=== PATIENT | male | born 1955 | race Caucasian/White ===

== ENCOUNTER → 2018-01-28 | Outpatient (CLI) | payer OTHER | LOC: M.MRI 08:09 | DX: M47.896 Other spondylosis, lumbar region (principal); M71.38 Other bursal cyst, other site; R60.9 Edema, unspecified; M54.16 Radiculopathy, lumbar region ==

== ENCOUNTER → 2018-05-04 | Outpatient (CLI) | payer OTHER ==
[~2018-05-04] MED LIST: ALEVE220 MG PO; ATORVASTATIN CA40 MG PO; FOSINOPRIL SODI40 M1 PO; HYDROCHLOROTH12.5 M1 PO; IBUPROFEN 400400 M2 PO; MOBIC15 MG PO; NORVASC5 MG PO
--- NOTE | ~2018-05-04 | PAINCON ---
[address] [address] PAIN MANAGEMENT CONSULTATION Name: REJI PRICE [facility] [id number] Admission: 05/04/18 Attend Phys: Vania Oscar MD Discharge: Date of : 53 Report #: [id number] THIS REPORT FOR: //name// CC: Mike Oscar DATE OF SERVICE: 05/04/2018 CHIEF COMPLAINT: Right leg radicular pain. HISTORY: The patient is a 62-year-old gentleman, who has been referred to the pain clinic for evaluation. The patient has complained of pain that began in about 12/2017. He has been having pain that is radiating down into his hip and shooting down to his right leg. He notes that the pain is worse over time. It continues to hurt "all day." Pain is better when he is lying down, somewhat helped with use of Advil, he describes it as continuous, burning, and shooting, he rates it as a 7/10 at this juncture. He has had an MRI, which shows right paracentral disk extrusion that abuts the thecal sac at the L5-S1 area and is hitting the S1 nerve root. He has a synovial cyst at that level. He has seen an orthopedic surgeon. He has undergone physical therapy about 4 weeks ago. He feels that the physical therapy worsened his condition. He is experiencing right leg weakness. He has tried Neurontin, is not sure that there was significant benefit from that. He notes that activities such as walking, standing, lifting, and bending are problematic. He has had some problem with his right knee, which has been drained on 2 occasions. He has some wffi-bm-ptlg deformity. PAST MEDICAL HISTORY: Hypertension. PAST SURGICAL HISTORY: Right knee surgery in 1984 and 2005, carpal tunnel surgery, left, in 2015. CURRENT MEDICATIONS: Lipitor 40 mg, amlodipine 5 mg, hydrochlorothiazide 12.5 mg, and fosinopril 40 mg. ALLERGIES: No known drug allergies. 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 REVIEW OF SYSTEMS: Generally, he is in good health. He wears glasses for reading. He has joint pain, joint stiffness, back pain, difficulty walking, numbness and tingling radiating down into the right leg. PAIN CLINIC ASSESSMENT AND PQRS: 1. Pain intensity is 7/10. 2. Osteoarthritis. The patient has some arthritic changes [place] [address] PAIN MANAGEMENT CONSULTATION Name: REJI PRICE Room: [facility]#: [id number] Admission: 05/04/18 Attend Phys: Vania Oscar MD Discharge: Date of : 53 Report #: [id number] of his back. 3. The patient is not being treated for rheumatoid arthritis. The patient has iktp-sa-bank pain involving the right knee. 4. Fall risk. The patient has not fallen in the last 3 months. 5. Blood thinner. The patient is not on a blood thinning medication. 6. Hypertension. The patient is being treated for hypertension. 7. Opioids greater than 6 weeks. The patient is not on an opioid regimen. 8. Risk assessment tool, low for opioid use. 9. Functional assessment tool. 10. Recreational drug use. The patient denies use of recreational drugs. 11. Tobacco: The patient denies use of tobacco. 12. Alcohol: The patient drinks beer daily. PHYSICAL EXAMINATION: GENERAL: The patient is a well-developed, well-nourished white male. He appears his stated age. He is alert and oriented x 3. His affect is appropriate. Speech is fluent. Height is 5 feet 11 inches, weight is 186 pounds, and BMI is 26. VITAL SIGNS: Blood pressure is 130/101, heart rate is 71, respiratory rate is 16, room air saturation is about 95%, and temperature is 97.8. HEENT: Normocephalic, atraumatic. Extraocular eye muscles intact. Sclerae nonicteric. Mucous membranes are moist. NECK: Without adenopathy or JVD. LUNGS: Clear to auscultation. MUSCULOSKELETAL: The patient is without significant scoliosis, kyphosis, or lordosis. He has pain and discomfort in the lower portion of his back. Forward bending to 90 degrees cause some increased pain in the low back area. Lumbar extension is not very problematic. Left and right lateral rotation both increased pain and discomfort. Lumbar extension caused some increased pain in low back area. The patient is having pain along the left lateral L5 dermatomal distribution on his right side. Upper extremity muscle strength is judged to be 5/5 for the major muscle groups. Deep tendon reflexes are trace bilaterally. Lower extremity muscle strength is judged to be 5/5 for the major muscle groups in the lower extremity. The patient notes some increased pain and discomfort with his left leg hanging in a dependent position. LABORATORY DATA: MRI of the lumbar spine dated 01/28/2018: 1. Axial image at L3-L4 straight, a generalized disk bulge, which is slightly more eccentric towards the left. This results in minimal left-sided neural foraminal narrowing. Moderate posterior facet degenerative changes present. No central spinal stenosis. 2. L4-L5: There is a generalized bulge, which is eccentric towards the right. Moderate hypertrophic posterior facet degenerative changes are present with fluid within both posterior facet joints. There is an anteromedially protecting right posterior facet joint synovial cyst measuring 7.7 mm x 8 mm in AP x transverse dimension. This abuts the right [place] [address] PAIN MANAGEMENT CONSULTATION Name: REJI PRICE Room: [facility] Aguirre#: [id number] Admission: 05/04/18 Attend Phys: Vania Oscar MD Discharge: Date of : 53 Report #: [id number] thecal sac and the descending right L5 nerve root. There is severe right-sided neural foraminal narrowing. Moderate left-sided neural foraminal narrowing. 3. At L5-S1, there is a right paracentral disk extrusion, which abuts the thecal sac and the descending right S1 nerve root sleeve. No significant central spinal stenosis. There is minimal bilateral neural foraminal narrowing. There is oajkdhej-ys-wvufut bilateral posterior facet joint degenerative changes. There is a small 8 mm fluid collection immediately posterior to the right posterior facet joint, which may represent a dorsal synovial cyst. IMPRESSION: 1. Lumbar radiculopathy involving the low back area with pain radiating down into the L5-S1 dermatomal distribution of his right leg in the L4-L5 distribution to the foot. 2. Hypertension. RECOMMENDATIONS: We have discussed treatment options with the patient. We will consider an epidural steroid injection. Possible complications of the procedure, which could include but are not limited to infection, worsening of pain, nerve damage, and bleeding were discussed. The patient will return to the pain clinic at which time he will then undergo an epidural steroid injection in the L4-L5 dermatomal distribution. We would like to thank you for letting us to participate in his care. We hope he continues to improve. By: [id number]. Thaddeus Oscar MD /[facility]
== END ==
LOC: M.PC 10:40
DX: M54.16 Radiculopathy, lumbar region (principal); I10 Essential (primary) hypertension

== ENCOUNTER → 2018-05-11 | Outpatient (CLI) | payer OTHER ==
--- NOTE | ~2018-05-11 | PAINCON ---
[address] [address] PAIN MANAGEMENT CONSULTATION Name: REJI PRICE [facility]: [facility] LemusRyan#: [id number] Admission: 05/11/18 Attend Phys: Vania Oscar MD Discharge: Date of : 53 Report #: [id number] THIS REPORT FOR: //name// CC: Mike Oscar DATE OF SERVICE: 05/11/2018 CHIEF COMPLAINT: Right leg pain. HISTORY: The patient is a 62-year-old gentleman who has been referred to the pain clinic. He suffers from pain and discomfort involving his right leg. He is experiencing pain that is shooting down into the right leg. Notes that the pain has worsened with time. As the day progresses, his pain becomes more problematic. He has tried nonsteroidal anti-inflammatory medications. His MRI shows a right paracentral disk extrusion that abuts the thecal sac at the L5-S1 area. He has returned today for treatment. He also has a synovial cyst at the level of L5-S1. He has undergone physical therapy. He has seen orthopedic surgeon. At this juncture, he would like to undergo an epidural steroid injection to help control his pain. ALLERGIES: No known drug allergies. MEDICATIONS: Lipitor 40 mg, amlodipine 5 mg, hydrochlorothiazide 12.5 mg, fosinopril 40 mg. PAIN CLINIC ASSESSMENT/PQRS: 1. Osteoarthritis. The patient has some arthritic changes in the lower portion of his back. 2. He is not being treated for rheumatoid arthritis. Has bclu-wr-vzkz pain in his right knee. 3. Pain intensity 6.5/10 when he is moving. 4. Fall risk. The patient has not fallen in the last 3 months. 5. Blood thinner. The patient is not on a blood thinning medication. 6. Hypertension. The patient is being treated for hypertension. 7. Opioid greater than 6 weeks. The patient is not receiving opioid medications on a regular basis. 8. Functional assessment tool, low for opioids. 9. Recreational drug use: The patient denies. 10. Tobacco: The patient denies use of tobacco. 11. Alcohol: The patient drinks a beer. PHYSICAL EXAMINATION: GENERAL: The patient is a well-developed, well-nourished white male. Appears his stated age. He is alert and oriented x 3. His affect is appropriate[place] [address] PAIN MANAGEMENT CONSULTATION Name: REJI PRICE Room: [facility]#: [id number] Admission: 05/11/18 Attend Phys: Vania Oscar MD Discharge: Date of : 53 Report #: [id number] HEENT: Normocephalic, atraumatic. Extraocular eye muscles intact. Sclerae nonicteric. Mucous membranes are moist. NECK: Without adenopathy or JVD. LUNGS: Clear to auscultation. MUSCULOSKELETAL: Without significant scoliosis, kyphosis or lordosis. The patient has some pain and discomfort in the lower portion of his back. His pain is radiating down into his right hip and into the right leg. Notes increased pain with walking. Muscle strength to the lower extremities is judged to be 5/5 for the left leg and 5-/5 for the right leg. IMPRESSION: 1. Lumbar radiculopathy involving the low back area with pain radiating down the L5-S1 dermatomal distribution of his right and with pain in the right L4-L5 dermatomal distribution involving his foot. 2. Hypertension. RECOMMENDATIONS: We discussed treatment options with the patient. Risks and benefits of an epidural steroid injection were again reviewed. They include but are not limited to infection, worsening of pain, no improvement in pain and the patient elects to proceed. PROCEDURE NOTE: The patient was placed in the prone position. His back was sterilely prepped with a Betadine solution. A pillow was placed under his abdomen to bolster and improve positioning. Fluoroscopy using anterior, posterior as well as lateral viewing were implemented. The patient's back had been sterilely prepped with a Betadine solution. This area was infiltrated at the L4-L5 interspace with 0.25% bupivacaine using a 25-gauge needle. A 17-gauge Tuohy with loss of resistance technique at the L4-L5 interspace midline was located. After appropriate placement, a total of 80 mg Depo-Medrol, 40 mg triamcinolone and 2 mL of 0.25% bupivacaine was injected using a right paramedian approach. The patient tolerated the procedure well. Total of 9 seconds fluoroscopy time was used. The patient's pain decreased to 1-2 at the time of his discharge. He will follow up in the future. A script for meloxicam 15 mg 1 p.o. daily was prescribed. The patient will call us if he has any concerns. We would like to thank you for letting us participate in his care. We hope he continues to improve. By: [id number]. Thaddeus Oscar MD /[facility]
== END | disposition home or self-care (01) ==
LOC: M.PC 04:56
DX: M54.16 Radiculopathy, lumbar region (principal); G89.29 Other chronic pain; I10 Essential (primary) hypertension; Z79.899 Other long term (current) drug therapy; Z98.890 Other specified postprocedural states

== ENCOUNTER → 2018-06-15 | Outpatient (CLI) | payer OTHER ==
[~2018-06-15] MED LIST changes: +MEDROLDOSEPACK PO
--- NOTE | ~2018-06-15 | PAINCON ---
[address] [address] PAIN MANAGEMENT CONSULTATION Name: REJI PRICE Naresh Room: [facility] LemusRyan#: [id number] Admission: 06/15/18 Attend Phys: Vania Oscar MD Discharge: Date of : 53 Report #: [id number] THIS REPORT FOR: //name// CC: Mike Aguilera DATE OF SERVICE: 06/15/2018 CHIEF COMPLAINT: Right leg radiculopathy. HISTORY OF PRESENT ILLNESS: The patient is a 62-year-old gentleman who has been seen in the Pain Clinic. He has undergone epidural steroid injection. Notes that his pain is improved significantly. He rates it as a 1/10. Feels is about 90% improved overall. Does still has some pain that radiates down the right lateral side, but overall things are going reasonably well. At this juncture, he is not sure whether or not he should undergo another epidural injection or save it for different time. He was given Mobic. He has not taken this yet. Has not used Advil. He is able to bend, twist and engage in activity with much less discomfort. Notes that lifting, bending, walking, standing and other activities can cause increased pain. Overall, he feels medications heat and cold have been helpful. He would like to consider his options. ALLERGIES: No known drug allergies. CURRENT MEDICATIONS: Lipitor 40 mg, amlodipine 5 mg, hydrochlorothiazide 12.5 mg, and Fosinopril 40 mg. PAIN CLINIC ASSESSMENT/PQRS: 1. The patient is not being treated for rheumatoid arthritis. Has some osteoarthritic changes in the lower portion of his back. 2. The patient has lcrn-vr-musb involvement in his right knee. 3. Fall history: The patient has not fallen in the last 3 months. 4. Blood thinner. The patient is not on a blood thinning medication. 5. Hypertension. The patient is being treated for hypertension. 6. Opioids greater than 6 weeks. The patient is not on opioid regimen. 7. Risk assessment tool, low for opioid use. 8. Functional assessment tool. 9. Recreational drug use. The patient denies use of recreational drugs. 10. Tobacco: The patient denies use of tobacco. 11. Alcohol: The patient occasionally drinks beer daily. PHYSICAL EXAMINATION: GENERAL: The patient is a well-developed, well-nourished white male. Appears his stated age. He is alert and oriented x 3. His affect is appropriate. [place] [address] PAIN MANAGEMENT CONSULTATION Name: REJI PRICE Naresh Room: [facility]#: [id number] Admission: 06/15/18 Attend Phys: Vania Oscar MD Discharge: Date of : 53 Report #: [id number] HEENT: Normocephalic and atraumatic. Extraocular eye muscles intact. Sclerae nonicteric. Mucous membranes are moist. NECK: Without adenopathy or JVD. LUNGS: Clear to auscultation. MUSCULOSKELETAL: Without significant scoliosis, kyphosis or lordosis. The patient has some discomfort in the lower portion of his back. Forward bending to 90 degrees has decreased in discomfort. He is able to do this easier. Has less pain in the L4-L5 dermatomal distribution. Muscle strength in the lower back appears to be 5/5 for the major muscle groups in the lower extremity. IMPRESSION: 1. Lumbar radiculopathy involving the low back area with pain radiating down the L5-S1 dermatomal distribution as well as the L4-L5 dermatomal distribution. 2. Hypertension. RECOMMENDATIONS: We discussed treatment options with the patient. The patient underwent an epidural steroid injection in the L4-L5 dermatomal distribution at the last visit. Overall, he feels that things are about 90% better. He is not having any significant problems. Still has some pain that radiates down the lateral portion of his leg on the right thigh. We will try a conservative approach. The patient has been given a Medrol Dosepak to take in the interim. We will have the patient try Meloxicam 15 mg 1 p.o. b.i.d. The patient has also been given a Medrol Dosepak to take as directed. He will call us if he has any concerns. Should his pain become more problematic, he will return to the Pain Clinic at which time he will then undergo another epidural steroid injection. We would like to thank you for letting us participate in his care. Overall, things are going well and he feels satisfied with the results. By: [id number]. Thaddeus Oscar MD /[facility]
== END ==
LOC: M.PC 04:27
DX: M54.16 Radiculopathy, lumbar region (principal); I10 Essential (primary) hypertension

== ENCOUNTER → 2018-08-10 | Outpatient (CLI) | payer OTHER ==
--- NOTE | ~2018-08-10 | PAINCON ---
[address] [address] PAIN MANAGEMENT CONSULTATION Name: REJI PRICE Room: [facility] LemusRyan#: [id number] Admission: 08/10/18 Attend Phys: Vania Oscar MD Discharge: Date of : 53 Report #: [id number] THIS REPORT FOR: //name// CC: Mike Aguilera DATE OF SERVICE: 08/10/2018 CHIEF COMPLAINT: Here for low back pain. HISTORY: The patient is a 62-year-old gentleman who has been seen in the pain clinic because of lumbar radiculopathy. He has undergone epidural steroid injection in the past and gleaned benefits from this. He is having some pain in his low back area. He is having pain that is radiating down into the right lateral portion of his leg and down into his calf. He feels that his pain was 100% improved after the first injection. It has become more problematic at this juncture now. He rates it as 6/10. He feels it is about 30% improved. He feels that the meloxicam is helpful. He is desiring an epidural steroid inject to help quell the pain and discomfort, which he is beginning to notice returning. ALLERGIES: No known drug allergies. CURRENT MEDICATIONS: Lipitor 40 mg, amlodipine 5 mg, hydrochlorothiazide 12.5 mg, and fosinopril 40 mg. PAIN CLINIC ASSESSMENT ASSESSMENT/PQRS. 1. The patient is not being treated for rheumatoid arthritis. He does have some osteoarthritic changes in his lower back. 2. The patient has some iryi-ms-jwyi involving his right knee. 3. Fall history: The patient has not fallen in the last 3 months. 4. Blood thinner. The patient is not on a blood thinning medication. 5. Hypertension. The patient is being treated for hypertension. 6. Opioids greater than 6 weeks. 7. The patient is not being treated long-term with opioid medications. 8. Functional assessment tool: Low for opioid use. 9. Recreational drug use: The patient denies use of recreational drugs. 10. Tobacco: The patient denies use of tobacco. 11. Alcohol: The patient occasionally drinks alcoholic beverage, drinks beer. PHYSICAL EXAMINATION: GENERAL: The patient is a well-developed, well-nourished white male. Appears his stated age. He is alert and oriented x 3. Affect is appropriate. Speech is fluent. HEENT: Normocephalic, atraumatic. Extraocular eye muscles [place] [address] PAIN MANAGEMENT CONSULTATION Name: DEEREJI Naresh Room: [facility]#: [id number] Admission: 08/10/18 Attend Phys: Vania Oscar MD Discharge: Date of : 53 Report #: [id number] nonicteric. Mucous membranes moist. NECK: Without adenopathy or JVD. HEART: Regular rate. LUNGS: Clear to auscultation. MUSCULOSKELETAL: Without significant scoliosis, kyphosis or lordosis. The patient has some discomfort in the lower portion of his back. Forward bending to 90 degrees caused some increased discomfort. The patient has pain that is radiating down the L4-L5 dermatomal distribution, particularly on the right side. Muscle extremity strength is judged to be 5/5 for the major muscle groups in the lower extremity. IMPRESSION: 1. Lumbar radiculopathy involving the L4-L5 dermatomal distribution on the right. 2. Hypertension. RECOMMENDATIONS: We discussed treatment options with the patient. Risks and benefits of an epidural steroid injection were discussed. Possible complications of the procedure, which could include but are not limited to infection, worsening of pain, no improvement in pain, trauma were reviewed. The patient elects to proceed. PROCEDURE NOTE: The patient was taken to the procedure area. He was then assisted in getting on examination table. His back was sterilely prepped with a Betadine solution. A 17-gauge Tuohy with loss of resistance technique was used to gain access at the right L4-L5 dermatomal area. This area was infiltrated with 0.25% bupivacaine. A 17-gauge Tuohy with loss of resistance technique using the right paramedian approach was undertaken. A total of 80 mg Depo-Medrol, 40 mg triamcinolone and 2 mL of 0.25% bupivacaine was injected. The patient tolerated the procedure well. There were no complications. Total of 8 seconds fluoroscopy time was used. The patient's pain decreased to 4 at the time of discharge. He will follow up in the future as needed. We would like to thank you for letting us participate in his care. We hope he continues to improve. By: [id number]. Thaddeus Oscar MD /[facility]
== END | disposition home or self-care (01) ==
LOC: M.PC 04:51
DX: M54.16 Radiculopathy, lumbar region (principal); G89.29 Other chronic pain; I10 Essential (primary) hypertension; Z98.890 Other specified postprocedural states; Z79.899 Other long term (current) drug therapy

== ENCOUNTER → 2018-11-30 | Outpatient (CLI) | payer OTHER ==
[~2018-11-30] MED LIST changes: +NORVASC10 MG PO; -NORVASC5 MG PO
--- NOTE | ~2018-11-30 | PAINCON ---
[address] [address] PAIN MANAGEMENT CONSULTATION Name: REJI PRICE Room: [facility] LENO CampbellRyanAbbeyRyan#: [id number] Admission: 11/30/18 Attend Phys: Vania Oscar MD Discharge: Date of : 53 Report #: [id number] THIS REPORT FOR: //name// CC: Mike Oscar DATE OF SERVICE: 11/30/2018 CHIEF COMPLAINT: "I think I might have waited a little bit too long and my pain down in my back has returned." HISTORY: The patient is a 63-year-old gentleman who has been followed in the pain clinic because of lumbar radiculopathy. He has undergone epidural steroid injection in the past and they have been quite beneficial. He rates his pain as a 7/10. He has noticed some increased pain and discomfort with activities of daily living such as walking and standing as well as other activities. He notes that the pain returned about a week ago and has been quite problematic radiating down into the right leg with some weakness and sensory changes. He is also contemplating eye surgery for blepharoplasty in the near future. ALLERGIES: No known drug allergies. CURRENT MEDICATIONS: Lipitor 40 mg, amlodipine 5 mg, hydrochlorothiazide 12.5 mg, and fosinopril 40 mg. PAIN CLINIC ASSESSMENT AND PQRS: 1. The patient is not being treated for rheumatoid arthritis, but does have some arthritic changes in the lower back. 2. The patient has some rbmq-ls-flag involving his right knee. had 3. Fall history, has not fallen in the last 3 months. 4. Blood thinner. The patient is not on a blood thinning medication. 5. Hypertension. The patient is being treated for hypertension. 6. Opioids greater than 6 weeks. The patient is not being treated for long-term with opioid medications. 7. Functional assessment tool, low for opioid use. 8. Recreational drug use. The patient denies use of recreational drugs. 9. Tobacco: The patient denies use of tobacco. 10. Alcohol: The patient occasionally drinks alcoholic beverages of a beer. PHYSICAL EXAMINATION: GENERAL: The patient is a well-developed, well-nourished white male. Appears his stated age. He is alert and oriented x 3. His affect is appropriate. Speech is fluent. HEENT: Normocephalic, atraumatic. Extraocular eye muscles intact. Sclerae nonicteric. [place]uc[place] [address] PAIN MANAGEMENT CONSULTATION Name: REJI PRICE Naresh Room: [facility]#: [id number] Admission: 11/30/18 Attend Phys: Vania Oscar MD Discharge: Date of : 53 Report #: [id number] NECK: Without adenopathy or JVD. LUNGS: Clear to auscultation. MUSCULOSKELETAL: Without significant scoliosis, kyphosis, or lordosis. The patient has pain and discomfort in his back, which is radiating down into the lower portion of his back involving his leg in the L5-S1 dermatomal distribution on the right. IMPRESSION: 1. Lumbar radiculopathy involving L4-L5 dermatomal distribution on the right. 2. Hypertension. 3. The patient to have blepharoplasty in the near future. RECOMMENDATIONS: We discussed treatment options with the patient. Risks and benefits of an epidural steroid injection were discussed. They include but are not limited to infection, worsening pain, no improvement in pain, and the patient elects to proceed. PROCEDURE NOTE: The patient was taken to the procedure area. He was then assisted in getting on examination table. His back was sterilely prepped with a Betadine solution. Fluoroscopy using anterior, posterior as well as lateral viewing were implemented. A 17-gauge Tuohy with loss of resistance technique was used in a midline approach at the L4-L5 area. This area had been infiltrated with 0.25% bupivacaine. There was no CSF, heme or paresthesia. A 17-gauge Tuohy needle was used to gain access to the epidural space. Aspiration was negative. A total of 80 mg Depo-Medrol, 40 mg triamcinolone and 2 mL of 0.25% bupivacaine was injected. The patient tolerated the procedure well. There were no complications. He remained in the pain clinic for an appropriate amount of time. He will follow up in the future as needed. We would like to thank you for letting us participate in his care. We hope he continues to improve. By: [id number]. Thaddeus Oscar MD /malathi
== END | disposition home or self-care (01) ==
LOC: M.PC 05:07
DX: M54.16 Radiculopathy, lumbar region (principal); G89.29 Other chronic pain; I10 Essential (primary) hypertension; Z98.890 Other specified postprocedural states; Z79.899 Other long term (current) drug therapy

== ENCOUNTER → 2019-01-27 | Outpatient (CLI) | payer OTHER ==
--- NOTE | 2019-02-02 09:09 | PAINCON ---
[address] [address] PAIN MANAGEMENT CONSULTATION Name: REJI PRICE Room: [facility] LENO LemusRyan#: [id number] Admission: 01/27/19 Attend Phys: Vania Oscar MD Discharge: Date of : 53 Report #: [id number] THIS REPORT FOR: //name// CC: Mike Aguilera DATE OF SERVICE: 01/27/2019 PRIMARY CARE PHYSICIAN: Mike Ramey DO CHIEF COMPLAINT: Worsening of pain down in my right and left leg. HISTORY OF PRESENT ILLNESS: The patient is a 63-year-old gentleman who has been followed in the pain clinic because of lumbar radiculopathy. Epidurals and steroid injections in the past have been quite beneficial. He has noted a worsening of his pain over the last few weeks. He is having pain that is radiating down into the right as well as the left leg. He generally gets about 70% relief after the injections. He has returned and notes that his pain has increased. He rates it as a 7/10. Pain is worse with walking and standing as well as activities of daily living. He denies any real change in his bowel or bladder function. He has not had a flu shot. CURRENT MEDICATIONS: Lipitor 40 mg, amlodipine 5 mg, hydrochlorothiazide 12.5 mg, fosinopril 40 mg. ALLERGIES: No known drug allergies. PAIN CLINIC ASSESSMENT AND PQRS: 1. The patient is not being treated for rheumatoid arthritis, but he does have some arthritic changes in his lower back. The patient has some raxb-nv-qgsf involvement in his right knee. 2. Vital Signs: Blood pressure 131/78, heart rate 83, respiratory rate 16, room air saturation 96%, temperature is 97.6. 3. Height 5 feet 11 inches, weight 176 pounds, BMI is 24. 4. Pain intensity 7/10. 5. Fall history: The patient has not fallen in the last 3 months. 6. Blood thinner. The patient is not on a blood thinning medication. 7. Hypertension. The patient is being treated for hypertension. 8. Opioids greater than 6 weeks. The patient receives medications, does not receive long-term opioid medications. 9. Functional assessment tool, low for opioid use. 10. Recreational drug use, the patient denies. 11. Tobacco: The patient denies use of tobacco. 12. Alcohol: The patient occasionally [place] [address] PAIN MANAGEMENT CONSULTATION Name: REJI PRICE Room: [facility]#: [id number] Admission: 01/27/19 Attend Phys: Vania Oscar MD Discharge: Date of : 53 Report #: [id number] PHYSICAL EXAMINATION: GENERAL: The patient is a well-developed, well-nourished, white male. Appears his stated age. He is alert and oriented x 3. His affect is appropriate. Speech is fluent. HEENT: Normocephalic, atraumatic. Extraocular eye muscles intact. Sclerae nonicteric. Mucous membranes are moist. NECK: Without adenopathy or JVD. HEART: Regular rate. ABDOMEN: Nontender. Bowel sounds present. EXTREMITIES: Upper extremity muscle strength judged to be 5/5 for the major muscle groups of the upper extremity. The patient without significant scoliosis, kyphosis or lordosis. The patient has pain and discomfort, which is radiating down in the L4-L5 area of his back with numbness and tingling in the L4-L5 area today. IMPRESSION: 1. Lumbar radiculopathy involving the L4-L5 dermatomal distribution on the left and right. 2. Hypertension. 3. History of blepharoplasty. RECOMMENDATIONS: We discussed treatment options with the patient. Risks and benefits of an epidural steroid injection were discussed. They include but are not limited to infection, worsening of pain, no improvement in pain, increased muscle soreness, headache, bleeding, nerve damage and the patient elects to proceed. PROCEDURE NOTE: The patient was taken to the procedure area. He was then assisted in getting on the examination table. His back was sterilely prepped with a Betadine solution. A 0.25% bupivacaine was infiltrated. A 17-gauge Tuohy with loss of resistance technique was used to gain access to the epidural space. There was no CSF, heme or paresthesia. Total of 80 mg Depo-Medrol, 40 mg triamcinolone was injected. The patient tolerated the procedure well. There were no complications. He remained in the pain clinic for an appropriate amount of time. He will follow up in the future as needed. We would like to thank you for letting us participate in his care. We hope he continues to improve. <ELECTRONICALLY SIGNED> By: Vania Oscar MD 02/02/19 0909 [id number]. Thaddeus Oscar MD /malathi
== END | disposition home or self-care (01) ==
LOC: M.PC 09:40
DX: M54.16 Radiculopathy, lumbar region (principal); G89.29 Other chronic pain; I10 Essential (primary) hypertension; Z98.890 Other specified postprocedural states; Z79.899 Other long term (current) drug therapy

== ENCOUNTER → 2019-03-08 | Outpatient (CLI) | payer OTHER ==
--- NOTE | ~2019-03-08 | PAINCON ---
[address] [address] PAIN MANAGEMENT CONSULTATION Name: REJI PRICE Room: [facility] LENO CampbellDamon#: [id number] Admission: 03/08/19 Attend Phys: Vania Oscar MD Discharge: Date of : 53 Report #: [id number] THIS REPORT FOR: //name// CC: Mike Aguilera DATE OF SERVICE: 03/08/2019 CHIEF COMPLAINT: Return of back pain down in the right and left leg. HISTORY: The patient is a 63-year-old gentleman who has been followed in the pain clinic because of chronic pain involving his low back. Epidural steroid injections have been particularly beneficial for him. He has noted significant pain relief after the injections. He has noticed an increase in pain at this point. He is having pain that is radiating down in his low back. Has pain in the right leg as well as the left leg. He notes that the outer portion of this cast in the lumbar area is problematic. He receives greater than 95% of pain relief after the injections. He has returned today with the hopes of undergoing an epidural steroid injection. He has been under the impression that he can get 6 injections per year. He is going to go on vacation in the next few weeks. He would surely love to have another injection at this juncture. We will try a Medrol Dosepak to note its efficacy. If his pain continues to be problematic, we would like to proceed with another epidural steroid injection. He denies any bowel or bladder dysfunction as a result of his problems. Rates his pain as a 10/10 at this juncture. CURRENT MEDICATIONS: Lipitor 40 mg, amlodipine 5 mg, hydrochlorothiazide 12.5 mg, and fosinopril 40 mg. ALLERGIES: No known drug allergies. PAIN CLINIC ASSESSMENT/PQRS: 1. The patient is not being treated for rheumatoid arthritis. He does have some arthritic changes in his lower back. There are tlzt-yw-pcbm changes involving his right knee. 2. Vital Signs: Blood pressure is 127/83, heart rate 78, respiratory rate 16, room air saturation 97%, temperature 98.7. Height 5 feet 11 inches, weight 177 pounds, BMI is 24.6. 3. Fall history. The patient has not fallen in the last 3 months. 4. Blood thinner. The patient is not on a blood thinning medication. 5. Hypertension. The patient is being treated for hypertension. 6. Opioids greater than 6 weeks. The patient received medication for one source of the pain. The patient is not receiving opioid medications on a regular basis. 7. Recreational [place] [address] PAIN MANAGEMENT CONSULTATION Name: REJI PRICE [id number] Admission: 03/08/19 Attend Phys: Vania Oscar MD Discharge: Date of : 53 Report #: [id number] 8. Functional assessment tool, low for opioid use. 9. Tobacco. The patient denies use of tobacco. 10. Alcohol. The patient occasionally drinks a beer. PHYSICAL EXAMINATION: GENERAL: The patient is a well-developed, well-nourished white male. Appears his stated age. He is alert and oriented x 3. Affect is appropriate. Speech is fluent. HEENT: Normocephalic, atraumatic. Extraocular eye muscles intact. Sclerae nonicteric. Mucous membranes are moist. NECK: Without adenopathy or JVD. HEART: Regular rate. ABDOMEN: Nontender. Bowel sounds present. EXTREMITIES: Upper extremity muscle strength judged to be 5/5 for the major muscle groups in the upper extremity. Upper extremity, the patient is without significant scoliosis, kyphosis or lordosis. The patient is experiencing pain and discomfort in lower portion of his back. It is radiating down into his left as well as the right leg. This involves the L4-L5 dermatomal distribution with numbness, tingling, and weakness in the area of his left and right leg. IMPRESSION: 1. Severe pain, lumbar radiculopathy at L4-L5 dermatomal distribution on the left as well as the right, right more problematic. 2. Hypertension. 3. History of blepharoplasty. RECOMMENDATIONS: We discussed treatment options with the patient. At this juncture, the patient is experiencing pain, which has greatly increased. He rates it as a 10/10 at this point. He has significantly embarrassing his ability to engage in activities of daily living. He has difficulty walking and standing. He is taking nonsteroidal anti-inflammatory medication without significant improvement. The patient is not on opioids. He would like to refrain from using opioid medications. He would like to proceed with an epidural steroid injection should his insurance company provide the option. We will have the patient try a conservative approach at this juncture. He will try Medrol Dosepak. He will take the medication as prescribed. Risks and benefits of steroid medications were discussed. Overall, the patient is having more and increasing pain. He received 95% improvement in pain level at the last injection. He is petitioning that his insurance carrier provide him the opportunity to undergo an epidural injection to decrease his pain and suffering. By: [id number]. MD paxton Carty
== END ==
LOC: M.PC 05:26
DX: M54.16 Radiculopathy, lumbar region (principal); I10 Essential (primary) hypertension

== ENCOUNTER → 2019-05-12 | Outpatient (CLI) | payer OTHER ==
--- NOTE | 2019-05-27 08:24 | PAINCON ---
[address] [address] PAIN MANAGEMENT CONSULTATION Name: REJI PRICE Room: [facility] Allan#: [id number] Admission: 05/12/19 Attend Phys: Vania Oscar MD Discharge: Date of : 53 Report #: [id number] THIS REPORT FOR: //name// cc: Mike Ramey James V. DO THIS REPORT FOR: //name// CC: Mike Aguilera The patient was seen on 05/12/2019 by Thaddeus Oscar MD CHIEF COMPLAINT: Low back pain with pain down into the legs, right greater than left. HISTORY: The patient is a 63-year-old gentleman who has been followed in the pain clinic because of low back pain with pain radiating down into his calf. He rates the pain today as an 8/10. He has found epidural steroid injections beneficial. Pain is an 8-9/10 today. He has wanted to undergo an epidural injection prior to going on vacation to help decrease his pain, so he can enjoy his vacation better. ALLERGIES: No known drug allergies. CURRENT MEDICATIONS: Lipitor 40 mg, amlodipine 5 mg, hydrochlorothiazide 12.5 mg, and fosinopril 40 mg. PAIN CLINIC ASSESSMENT/PQRS: 1. The patient is not being treated for rheumatoid arthritis. He does have some arthritic changes in his low back area. There are urhf-ik-knfb changes involving his right knee. 2. Vital Signs: Blood pressure is 122/74, heart rate 91, respiratory rate 16, room air saturation 95%. 3. Height 5 feet 11 inches, weight 184 pounds, BMI is 25.6. 4. Temperature is 97.4. 5. Pain score, 8-9/10. 6. Fall history: The patient has not fallen in the last 3 months. 7. Blood thinner. The patient is not on a blood thinning medication. 8. Hypertension. The patient is being treated for hypertension. 9. Opioids greater than 6 weeks. The patient received medication from one source, the pain clinic. 10. Risk assessment tool. The patient is not receiving opioid medications on a regular basis. 11. Recreational drug use: The patient denies. 12. Functional assessment tool, low for opioid use. 13. Tobacco: The [place] [address] PAIN MANAGEMENT CONSULTATION Name: DEEREJI Naresh Room: [facility]#: [id number] Admission: 05/12/19 Attend Phys: Vania Oscar MD Discharge: Date of : 53 Report #: [id number] 14. Alcohol: The patient occasionally drinks alcoholic beverages -- a beer. PHYSICAL EXAMINATION: GENERAL: The patient is a well-developed, well-nourished white male who appears his stated age. He is alert and oriented x 3. His affect is appropriate. Speech is fluent. HEENT: Normocephalic, atraumatic. Extraocular eye muscles intact. Sclerae are nonicteric. Mucous membranes are moist. NECK: Without adenopathy or JVD. HEART: Regular rate. ABDOMEN: Nontender. Bowel sounds present. EXTREMITIES: Upper extremity muscle strength judged to be 5/5 for the major muscle groups in the upper extremity. Lower extremity muscle strength judged to be 5/5 for the major muscle groups. The patient is without significant scoliosis, kyphosis or lordosis. He does have some numbness and tingling in the L5-S1 dermatomal distribution with weakness in the area of his left and right leg. IMPRESSION: 1. Severe lumbar radiculopathy at L4-L5 with some pain on the right. 2. Hypertension. 3. History of blepharoplasty. RECOMMENDATIONS: We discussed treatment options with the patient. We will proceed with an epidural steroid injection at the L5-S1 area. The risks and benefits, which could include but are not limited to infection, worsening of pain, no improvement in pain, nerve damage, spinal headache, and muscle soreness were reviewed and the patient elects to proceed. PROCEDURE NOTE: The patient was taken to the procedure area. He was then assisted in getting on the examination table. His back was sterilely prepped with a Betadine solution and allowed to dry. At the L5-S1 area, 0.25% bupivacaine was infiltrated. A 17-gauge Tuohy with loss of resistance technique was used to gain access to the epidural space. There was no CSF, heme or paresthesia. A total of 80 mg of Depo-Medrol, 40 mg of triamcinolone and 2 mL of 0.25% bupivacaine was injected. The patient tolerated the procedure well. Approximately 8 second fluoroscopy time was used. The patient tolerated the procedure well. He will follow up in the future as needed. <ELECTRONICALLY SIGNED> By: Vania Oscar MD 05/27/19 0824 [id number] [id number]. Thaddeus Oscar MD /nt
== END | disposition home or self-care (01) ==
LOC: M.PC 10:50
DX: M54.16 Radiculopathy, lumbar region (principal); G89.29 Other chronic pain; I10 Essential (primary) hypertension; Z98.890 Other specified postprocedural states; Z79.899 Other long term (current) drug therapy

== ENCOUNTER → 2019-08-18 | Outpatient (CLI) | payer OTHER | END | disposition home or self-care (01) | LOC: M.PC 01:49 | DX: M54.16 Radiculopathy, lumbar region (principal); G89.29 Other chronic pain ==

== ENCOUNTER → 2019-11-17 | Outpatient (CLI) | payer MEDICARE, OTHER | END | disposition home or self-care (01) | LOC: M.PC 02:10 | PROVIDERS: ATTEND Anesthesiology Pain Medicine | DX: M54.16 Radiculopathy, lumbar region (principal); G89.29 Other chronic pain; I10 Essential (primary) hypertension; Z98.890 Other specified postprocedural states; Z79.899 Other long term (current) drug therapy ==

== ENCOUNTER → 2020-02-21 | Outpatient (CLI) | payer MEDICARE, OTHER ==
--- NOTE | ~2020-02-21 | PAINCON ---
[address] [address] PAIN MANAGEMENT CONSULTATION Name: REJI PRICE Naresh Room: [facility] Allan#: [id number] Admission: 02/21/20 Attend Phys: Vania Oscar MD Discharge: Date of : 53 Report #: [id number] THIS REPORT FOR: //name// cc: Mike Ramey James V. DO ~ CC: Mike Aguilera DATE OF SERVICE: 02/21/2020 CHIEF COMPLAINT: Low back and left leg pain. HISTORY: The patient is a 64-year-old gentleman who has been followed in the Pain Clinic because of low back pain. He has undergone epidural steroid injections in the past. He returns today indicating that his pain continues to be problematic. He would like to proceed with an epidural steroid injection to help quell the pain and discomfort he is undergoing. Has notes that his pain is a 7/10 today. He is considering undergoing a knee surgery in the near future. He feels that his pain is about 80% improved with his current medical regimen. ALLERGIES: No known drug allergies. CURRENT MEDICATIONS: Lipitor 40 mg, amlodipine 5 mg, hydrochlorothiazide 12.5 mg, and fosinopril 40 mg. PAIN CLINIC ASSESSMENT/PQRS: 1. The patient is not being treated for rheumatoid arthritis. He does have some complaints of osteoarthritic changes in his low back. He does have some pety-at-hfav complaints involving his right knee. 2. Vital Signs: Blood pressure 157/94, heart rate 86, respiratory rate 18, room air saturation 97%, temperature is 98.3. 3. Pain intensity, 7/10. 4. Fall history: The patient has not fallen in the last 3 months. 5. Blood thinner. The patient is not on a blood thinning medication. 6. Hypertension. The patient receives medication from the Pain Clinic. 7. Recreational drug use: The patient denies. 8. Functional assessment tool, low for opioid use. 9. Tobacco: The patient denies use of tobacco. PHYSICAL EXAMINATION: GENERAL: The patient is a well-developed, well-nourished white male. Appears his stated age. He is alert and oriented x 3. His affect is appropriate. Speech is fluent. HEENT: Normocephalic, atraumatic. Extraocular eye muscles intact. Sclerae nonicteric. The patient [place] [address] PAIN MANAGEMENT CONSULTATION Name: REJI PRICE Naresh Room: [facility]#: [id number] Admission: 02/21/20 Attend Phys: Vania Oscar MD Discharge: Date of : 53 Report #: [id number] NECK: Without adenopathy or JVD. HEART: Regular rate. LUNGS: Clear. ABDOMEN: Bowel sounds present. Nontender. MUSCULOSKELETAL: Upper extremity muscle strength is judged to be 5/5 for the major muscle groups in the upper extremity. Lower extremity muscle strength is judged to be 5/5 for the major muscle groups in the lower extremity. The patient has pain and discomfort in his knee. Also, the patient is without significant scoliosis, kyphosis or lordosis. Has pain and discomfort in the L4-L5 dermatomal distribution with pain radiating down into his left and right leg. IMPRESSION: 1. Severe lumbar radiculopathy with pain and discomfort in the L4-L5 distribution. 2. Hypertension. 3. History of blepharoplasty. RECOMMENDATIONS: We discussed treatment options with the patient. Risks and benefits of an epidural steroid injection were discussed. Possible complications of the procedure, which could include but are not limited to infection, worsening pain, no improvement in pain, nerve damage, bleeding were discussed and the patient elects to proceed. PROCEDURE NOTE: The patient was taken to the procedure area. He was then assisted in getting on the examination table. His back was sterilely prepped with a Betadine solution. A 0.25% bupivacaine was infiltrated into this area. A 17-gauge Tuohy with loss of resistance technique was used to gain access to the epidural space at the L4-L5 area. A total of 80 mg Depo-Medrol, 40 mg triamcinolone and 2 mL of 0.25% bupivacaine was injected. The patient tolerated the procedure well. There were no complications. Remained in the Pain Clinic for an appropriate amount of time. He will follow up in the future as needed. We would like to thank you for letting us participate in his care. Total of 15 seconds fluoroscopy time was used. By: [id number]. Thaddeus Oscar MD /nt
== END | disposition home or self-care (01) ==
LOC: M.PC 10:30
PROVIDERS: ATTEND Anesthesiology Pain Medicine
DX: M54.16 Radiculopathy, lumbar region (principal); G89.29 Other chronic pain; I10 Essential (primary) hypertension; Z98.890 Other specified postprocedural states; Z79.899 Other long term (current) drug therapy

== ENCOUNTER 2020-06-12 18:48 | Emergency (ER) | payer MEDICARE, OTHER ==
[~2020-06-12] VITALS: Ht 177.8 cm; Wt 78.0 kg
[2020-06-12] MEDS ORDERED: ASPIRIN (19:07)
[2020-06-12] MEDS ORDERED: FENOFIBRATE150 MG PO (19:08)
[2020-06-12] MEDS ORDERED: CELEBREX 200 M200 M1 PO (19:08)
[2020-06-12] MEDS ORDERED: PERCOCET 5-3251 EACH PO (19:09)
[2020-06-12] MEDS ORDERED: CIPROFLOXACIN500 M1 PO (19:48)
[2020-06-12 19:58] LABS: URINE BILIRUBIN NEGATIVE (Negative); URINE BLOOD NEGATIVE (Negative); URINE CLARITY CLEAR; URINE COLOR YELLOW; URINE GLUCOSE-RANDOM TRACE (Negative); URINE KETONES NEGATIVE (Negative); URINE LEUKOCYTES-REFLEX NEGATIVE (Negative); URINE NITRITE-REFLEX NEGATIVE (Negative); URINE PROTEIN NEGATIVE (Negative); URINE SPECIFIC GRAVITY 1.015 (1.005-1.030); URINE UROBILINOGEN >= 8.0 E.U./dl (0.2-1.0)
[2020-06-12 20:12] VITALS: BP 122/78
== END 2020-06-12 20:12 | disposition home or self-care (01) ==
LOC: M.ERS 18:48
PROVIDERS: Family Medicine
DX: R33.9 Retention of urine, unspecified (principal); K59.00 Constipation, unspecified

== ENCOUNTER → 2020-08-30 | Outpatient (CLI) | payer MEDICARE, OTHER ==
[~2020-08-30] MED LIST changes: +ASPIRIN; +CELEBREX 200 M200 M1 PO; +CIPROFLOXACIN500 M1 PO; +FENOFIBRATE150 MG PO; +PERCOCET 5-3251 EACH PO
== END | disposition home or self-care (01) ==
LOC: M.PC 08:40
PROVIDERS: ATTEND Anesthesiology Pain Medicine
DX: M54.16 Radiculopathy, lumbar region (principal); G89.29 Other chronic pain; I10 Essential (primary) hypertension; Z98.890 Other specified postprocedural states; Z79.899 Other long term (current) drug therapy; Z96.653 Presence of artificial knee joint, bilateral

== ENCOUNTER → 2020-10-04 | Outpatient (CLI) | payer MEDICARE, OTHER | END | disposition home or self-care (01) | LOC: M.PC 08:40 | PROVIDERS: ATTEND Anesthesiology Pain Medicine | DX: M54.16 Radiculopathy, lumbar region (principal); G89.29 Other chronic pain; I10 Essential (primary) hypertension; Z98.890 Other specified postprocedural states; Z79.899 Other long term (current) drug therapy ==

== ENCOUNTER → 2020-12-11 | Outpatient (CLI) | payer MEDICARE, OTHER ==
[~2020-12-11] MED LIST changes: +TRAMADOL 50 MG50 MG PO
== END | disposition home or self-care (01) ==
LOC: M.PC 08:57
PROVIDERS: ATTEND Anesthesiology Pain Medicine
DX: M54.16 Radiculopathy, lumbar region (principal); G89.29 Other chronic pain; I10 Essential (primary) hypertension; Z98.890 Other specified postprocedural states; Z96.653 Presence of artificial knee joint, bilateral; Z79.899 Other long term (current) drug therapy

== ENCOUNTER → 2021-03-12 | Outpatient (CLI) | payer MEDICARE, OTHER | END | disposition home or self-care (01) | LOC: M.PC 09:47 | PROVIDERS: ATTEND Anesthesiology Pain Medicine | DX: M54.16 Radiculopathy, lumbar region (principal); G89.29 Other chronic pain; Z98.890 Other specified postprocedural states; Z79.899 Other long term (current) drug therapy; Z96.653 Presence of artificial knee joint, bilateral ==

== ENCOUNTER → 2021-05-21 | Outpatient (CLI) | payer MEDICARE, OTHER | END | disposition home or self-care (01) | LOC: M.PC 09:07 | PROVIDERS: ATTEND Anesthesiology Pain Medicine | DX: M54.16 Radiculopathy, lumbar region (principal); I10 Essential (primary) hypertension; Z79.899 Other long term (current) drug therapy ==